=== PATIENT | female | born 1985 ===

== ENCOUNTER 2018-04-22 16:23 | Inpatient (IN) | payer OTHER ==
[~2018-04-22] VITALS: Ht 162.6 cm; Wt 2.3 kg
[2018-04-27] MEDS ORDERED: PRENATAL TABLE1 EAC1 PO (07:52)
== END 2018-04-30 13:52 | DRG 807 ==
LOC: OB/GYN 04-27 07:43 → LDR 04-27 07:43 → OB/GYN 04-28 14:00 → LDR 05-16 16:23
PROC: 4A1HXCZ Monitoring of Products of Conception, Cardiac Rate, External Approach (ICD-10-PCS; 2018-04-27)
PROC: 10E0XZZ Delivery of Products of Conception, External Approach (ICD-10-PCS; principal; 2018-04-28)
PROC: 0KQM0ZZ Repair Perineum Muscle, Open Approach (ICD-10-PCS; 2018-04-28)
PROC: 0W8NXZZ Division of Female Perineum, External Approach (ICD-10-PCS; 2018-04-28)
PROC: 4A033R1 Measurement of Arterial Saturation, Peripheral, Percutaneous Approach (ICD-10-PCS; 2018-04-28)
PROC: 3E033VJ Introduction of Other Hormone into Peripheral Vein, Percutaneous Approach (ICD-10-PCS; 2018-04-28)
DX: O70.1 Second degree perineal laceration during delivery (principal); Z37.0 Single live birth; O36.5930 Maternal care for other known or suspected poor fetal growth, third trimester, not applicable or unspecified; Z3A.37 37 weeks gestation of pregnancy

== ENCOUNTER 2018-04-25 10:41 | Outpatient (CLI) | payer OTHER | END 2018-04-25 11:50 | disposition home or self-care (01) | LOC: NST 10:41 | DX: O36.5930 Maternal care for other known or suspected poor fetal growth, third trimester, not applicable or unspecified (principal); Z34.03 Encounter for supervision of normal first pregnancy, third trimester ==